=== PATIENT | male | born 1950 | race Caucasian/White ===

== ENCOUNTER 2019-08-08 13:17 | Emergency (ER) | payer OTHER ==
--- NOTE | 2019-08-08 13:56 | ERPHSYRPT ---
- History of Present Illness Time Seen by Provider: 08/08/19 13:56 Source: patient Exam Limitations: no limitations Patient Subjective Stated Complaint: Pt has been feeling sick for about a week and a half, has a cough that produces yellow sputum but feels that there is much more that isn't coming up, went to [facility] today and had a chest x-ray and labs done Triage Nursing Assessment: Pt sent to the ER from [facility], tachycardic, short of breath, productive cough, crackles in left upper, +1 edema to sathish lower extremeties, S1-S2 sounds heard, pulses bounding, denies pain Physician History: Is a 69-year-old white male who has seen Dr. Washington in the past but is not on any medication and has no known drug allergies. He presented to the urgent care with complaints of cough shortness of breath and orthopnea. Patient denies chest pain. He denies abdominal pain. In the urgent care center, patient was found to have an elevated heart rate in the 150s. Patient was sent to the radiology suite and a chest x-ray was obtained which revealed changes consistent with congestive heart failure. That is cardiomegaly and small bibasilar pleural effusions. Patient was then sent to the emergency room where he was found to have heart rate in the 150s but is hemodynamically stable. Timing/Duration: week(s) Cough Quality/Degree: mild, dry cough Possible Cause: no prior episodes Associated Symptoms: cough, shortness of breath, No fever, No chills, No chest pain/soreness, No dizziness Allergies/Adverse Reactions: No Known Drug Allergies Allergy (Verified 08/08/19 13:50) Home Medications: Glucosamine/D3/Boswellia Eleni [Osteo Bi-Flex Tablet] 1 each PO DAILY 08/08/19 [ History] Hx Influenza Vaccination/Date Given: Yes (2018) Hx Pneumococcal Vaccination/Date Given: No - Review of Systems Constitutional: Weakness Eyes: No Symptoms Ears, Nose, & Throat: No Symptoms Respiratory: Cough, Dyspnea Cardiac: No Symptoms, Orthopnea, No Chest Pain, No Palpitations, No Syncope Abdominal/Gastrointestinal: No Symptoms Genitourinary Symptoms: No Symptoms Musculoskeletal: No Symptoms Skin: No Symptoms Neurological: No Symptoms Psychological: No Symptoms Endocrine: No Symptoms Hematologic/Lymphatic: No Symptoms Immunological/Allergic: No Symptoms All Other Systems: Reviewed and Negative - Past Medical History Pertinent Past Medical History: Yes Neurological History: No Pertinent History ENT History: No Pertinent History Cardiac History: No Pertinent History Respiratory History: No Pertinent History Endocrine Medical History: No Pertinent History Musculoskeletal History: No Pertinent History GI Medical History: No Pertinent History History: No Pertinent History Psycho-Social History: No Pertinent History Male Reproductive Disorders: No Pertinent History Other Medical History: hypotension 15 years ago - Past Surgical History Past Surgical History: Yes Neuro Surgical History: No Pertinent History Cardiac: No Pertinent History Respiratory: No Pertinent History Gastrointestinal: No Pertinent History Genitourinary: No Pertinent History Musculoskeletal: No Pertinent History Male Surgical History: No Pertinent History - Social History Smoking Status: Current every day smoker Exposure to second hand smoke: Yes Drug Use: none Patient Lives Alone: No - Nursing Vital Signs Nursing Vital Signs: Initial Vital Signs Temperature 97.9 F 08/08/19 13:26 Pulse Rate 156 H 08/08/19 13:26 Respiratory Rate 18 08/08/19 13:26 Blood Pressure 130/95 08/08/19 13:26 O2 Sat by Pulse Oximetry 99 08/08/19 13:26 Pain Scale Pain Intensity 0 - Physical Exam General Appearance: moderate distress, alert, anxiety Eye Exam: PERRL/EOMI, eyes nml inspection Ears, Nose, Throat Exam: normal ENT inspection, moist mucous membranes Neck Exam: normal inspection, non-tender, supple, full range of motion Respiratory Exam: normal breath sounds, airway intact, No chest tenderness, No lungs clear, No respiratory distress Cardiovascular Exam: tachycardia, edema (Bilateral feet and ankles) Gastrointestinal/Abdomen Exam: soft, normal bowel sounds, No tenderness Rectal Exam: not done Back Exam: normal inspection, normal range of motion, No CVA tenderness, No vertebral tenderness Extremity Exam: pedal edema (Bilateral feet and ankles) Neurologic Exam: alert, oriented x 3, cooperative, 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 Bundle branch block. 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 Care 08/08/19 14:04 Active EKG-ER Only [facility] 08/08/19 14:02 Active EKG-ER Only [facility] 08/08/19 15:32 Active IV Insertion [facility] 08/08/19 14:02 Active Pulse Oximetry (ED) [facility] Care 08/08/19 14:02 Active CHEST WITH CONTRAST [CT] Stat Exams 08/08/19 15:54 Taken CBC W DIFF Stat Lab 08/08/19 14:18 Completed CMP Stat Lab 08/08/19 14:18 Completed D-DIMER QUANTITATIVE Stat Lab 08/08/19 14:18 Completed Lactic Acid Stat Lab 08/08/19 14:45 Completed NT PRO BNP Stat Lab 08/08/19 14:18 Completed PROTIME WITH INR Stat Lab 08/08/19 14:18 Completed TROPONIN Q3H Lab 08/08/19 14:18 Completed TROPONIN Q3H Lab 08/08/19 17:25 Completed TROPONIN Q3H Lab 08/08/19 20:15 Ordered TROPONIN Q3H Lab 08/08/19 23:15 Ordered TROPONIN Q3H Lab 08/09/19 02:15 Ordered Medication Summary Generic Name Dose Route Start Last Admin Trade Name Freq PRN Reason Stop Dose Admin Amiodarone HCl/Dextrose 360 mg in 200 mls @ 33 mls/hr 08/08/19 15:15 15:19 Nexterone 360 Mg/200 Ml Bag IV 09/07/19 15:14 33 mls/hr .Q6H4M JOSE MARTIN 33 mls/hr Administration Protocol Sodium Chloride 250 mls @ 250 mls/hr 08/08/19 18:00 08/08/19 18:05 Sodium Chloride 0.9% 250 Ml IV 08/08/19 18:59 250 mls/hr .Q1H JOSE MARTIN Administration Discontinued Medications Generic Name Dose Route Start Last Admin Trade Name Freq PRN Reason Stop Dose Admin Adenosine 6 mg 08/08/19 15:53 08/08/19 16:23 Adenocard Iv 6 Mg/2 Ml IV 08/08/19 15:54 6 mg STAT ONE Administration Adenosine Confirm 08/08/19 15:57 Adenocard Iv 6 Mg/2 Ml Administered 08/08/19 15:58 Dose 18 mg IV .STK-MED ONE Adenosine 12 mg 08/08/19 16:27 08/08/19 16:29 Adenocard Iv 6 Mg/2 Ml IV 08/08/19 16:28 12 mg STAT ONE Administration Amiodarone HCl 150 mg 08/08/19 14:16 08/08/19 14:38 Cordarone 150 Mg/3 Ml Injection IV 08/08/19 14:17 150 mg STAT ONE Administration Amiodarone HCl Confirm 08/08/19 14:27 Cordarone 150 Mg/3 Ml Injection Administered 08/08/19 14:28 Dose 150 mg .ROUTE .STK-MED ONE Diltiazem HCl 20 mg 08/08/19 14:02 08/08/19 14:39 Cardizem Iv 50 Mg/10 Ml IV 08/08/19 14:03 Not Given STAT ONE Diltiazem HCl 20 mg 08/08/19 16:56 08/08/19 17:23 Cardizem Iv 50 Mg/10 Ml IV 08/08/19 16:57 20 mg STAT ONE Administration Diltiazem HCl Confirm 08/08/19 16:58 Cardizem Iv 50 Mg/10 Ml Administered 08/08/19 16:59 Dose 50 mg IV .STK-MED ONE Furosemide 40 mg 08/08/19 14:02 08/08/19 14:38 Lasix 40 Mg/4 Ml IV 08/08/19 14:03 40 mg STAT ONE Administration Furosemide Confirm 08/08/19 14:28 Lasix 40 Mg/4 Ml Administered 08/08/19 14:29 Dose 40 mg .ROUTE .STK-MED ONE Dextrose Confirm 08/08/19 14:28 D5w 100ml Mini Bag 100 Ml Administered 08/08/19 14:29 Dose 100 mls @ ud IV .STK-MED ONE Diltiazem HCl Confirm 08/08/19 16:57 Cardizem Drip 100 Mg/100 Ml D5w Administered 08/08/19 16:58 Dose 100 mls @ ud IV .STK-MED ONE Diltiazem HCl Confirm 08/08/19 18:02 Cardizem Drip 100 Mg/100 Ml D5w Administered 08/08/19 18:03 Dose 100 mls @ ud IV .STK-MED ONE Lab/Rad Data: Laboratory Result Diagrams 08/08/19 14:18 08/08/19 14:18 Laboratory Results 08/08/19 08/08/19 08/08/19 Range/Units 17:25 14:45 14:18 WBC (4.0-10.5) K/mm3 RBC (4.1-5.6) M/mm3 Hgb (12.5-18.0) gm/dl Hct (42-50) % MCV (78-100) fl MCH (26-32) pg MCHC (32-36) g/dl RDW (11.5-14.0) % Plt Count (150-450) K/mm3 MPV (7.5-11.0) fl Gran % (36.0-66.0) % Eos # (Auto) (0-0.5) Absolute Lymphs (auto) (1.0-4.6) Absolute Monos (auto) (0.0-1.3) Lymphocytes % (24.0-44.0) % Monocytes % (0.0-12.0) % Eosinophils % (0.00-5.0) % Basophils % (0.0-0.4) % Absolute Granulocytes (1.4-6.9) Basophils # (0-0.4) PT (8.83-12.87) SECONDS INR (0.8-3.0) D-Dimer (215-500) ng/mL Sodium (137-145) mmol/L Potassium (3.5-5.1) mmol/L Chloride (98-107) mmol/L Carbon Dioxide (22-30) mmol/L Anion Gap (5-15) MEQ/L BUN (9-20) mg/dL Creatinine (0.66-1.25) mg/dL Estimated GFR ML/MIN Glucose (74-106) mg/dL Lactic Acid 0.8 (0.4-2.0) Calcium (8.4-10.2) mg/dL Total Bilirubin (0.2-1.3) mg/dL AST (17-59) U/L ALT (0-50) U/L Alkaline Phosphatase (38-126) U/L Troponin I < 0.012 < 0.012 (0.000-0.034) ng/mL NT-Pro-B Natriuret Pep (0-900) pg/mL Serum Total Protein (6.3-8.2) g/dL Albumin (3.5-5.0) g/dL 08/08/19 08/08/19 08/08/19 Range/Units 14:18 14:18 14:18 WBC 6.3 (4.0-10.5) K/mm3 RBC 4.43 (4.1-5.6) M/mm3 Hgb 13.6 (12.5-18.0) gm/dl Hct 40.6 L (42-50) % MCV 91.6 (78-100) fl MCH 30.7 (26-32) pg MCHC 33.5 (32-36) g/dl RDW 14.4 H (11.5-14.0) % Plt Count 301 (150-450) K/mm3 MPV 10.1 (7.5-11.0) fl Gran % 65.0 (36.0-66.0) % Eos # (Auto) 0.06 (0-0.5) Absolute Lymphs (auto) 1.51 (1.0-4.6) Absolute Monos (auto) 0.59 (0.0-1.3) Lymphocytes % 24.1 (24.0-44.0) % Monocytes % 9.4 (0.0-12.0) % Eosinophils % 1.0 (0.00-5.0) % Basophils % 0.5 (0.0-0.4) % Absolute Granulocytes 4.08 (1.4-6.9) Basophils # 0.03 (0-0.4) PT 13.7 H (8.83-12.87) SECONDS INR 1.21 (0.8-3.0) D-Dimer 731 H* (215-500) ng/mL Sodium 132 L (137-145) mmol/L Potassium 4.5 (3.5-5.1) mmol/L Chloride 99 (98-107) mmol/L Carbon Dioxide 23 (22-30) mmol/L Anion Gap 14.7 (5-15) MEQ/L BUN 16 (9-20) mg/dL Creatinine 0.84 (0.66-1.25) mg/dL Estimated GFR > 60.0 ML/MIN Glucose 113 H (74-106) mg/dL Lactic Acid (0.4-2.0) Calcium 9.3 (8.4-10.2) mg/dL Total Bilirubin 0.80 (0.2-1.3) mg/dL AST 48 (17-59) U/L ALT 52 H (0-50) U/L Alkaline Phosphatase 94 (38-126) U/L Troponin I (0.000-0.034) ng/mL NT-Pro-B Natriuret Pep 2850 H (0-900) pg/mL Serum Total Protein 6.9 (6.3-8.2) g/dL Albumin 4.0 (3.5-5.0) g/dL - Progress Progress: improved, re-examined Air Movement: good Progress Note: 08/08/19 17:09 Repeat EKG at 1543 after 150 mg intravenous amiodarone bolus and 1 mg/min amiodarone IV drip reveals sinus tachycardia with a QRS in the normal range. Heart rate now 150. We then opted for adenosine 6 mg intravenously followed by adenosine 12 mg IV bolus. Third EKG reveals a QRS that is 0.144. Heart rate is 151. I did place a call to Dr. Espinal who is the emergency room physician at [facility] emergency department I reviewed the patient's history, condition and the EKG findings as I read them. He did not see the EKGs himself. Based on what I was telling him, and not what he was seeing on the EKG he felt that treating the underlying cause of it was sinus tachycardia would be appropriate. I looked at the rhythm strip obtained after we gave the adenosine medication intravenously. The rhythm now looks more like an atrial flutter. We will stop the amiodarone drip and give the patient Cardizem. 08/08/19 18:12 We placed the patient on Cardizem followed by Cardizem drip. There appeared to be some mild response. The patient has maintained his blood pressure throughout his hospitalization here. I recontacted Dr. Espinal at [facility] emergency department. I reviewed the labs, x-ray results including the CAT scan of his chest with contrast. There is no evidence of any pneumonia or pulmonary emboli. There appears to be pleural effusions and picture consistent with congestive heart failure. He accepts the patient for transfer. 08/08/19 18:28 Patient is now refusing admission or transfer to any facility. Patient does not want any further treatment at this time. I informed him of his risk including worsening condition and even . I explained to him the benefits of being admitted into the facility. He adamantly refuses at this time. We will treat him with diuretics and he was informed that he can come back to our emergency room anytime. Blood Culture(s) Obtained: No Antibiotics given: No Discussed with : Other (Kylie) Counseled pt/family regarding: lab results, diagnosis, need for follow-up, rad results - Departure Departure Disposition: AMA Clinical Impression: Congestive heart failure, Tachycardia, Pleural effusion Condition: Fair Critical Care Time: Yes Critical Care Time(excluding separately billable procedures): Critical 75-104 mins Referrals: AURELIA GODINEZ MD [Primary Care Provider] - Instructions: Heart Failure Additional Instructions: Take the medication as prescribed. Return to the emergency room if symptoms worsen. Follow-up with your primary care physician for further management. Prescriptions: Furosemide 20 mg [Lasix 20 mg] 20 mg PO BID #20 tablet Potassium Chloride 10 Meq Tab* [Klor Con 10 MEQ] 10 meq PO DAILY #10 tab
[2019-08-08] MEDS ORDERED: Lasix 40 MG/4 ML IV ONE (14:02)
[2019-08-08] MEDS ORDERED: Cardizem IV 50 MG/10 ML IV ONE ×3 (14:02→16:58)
[2019-08-08] MEDS ORDERED: Cordarone 150 MG/3 ML Injection IV ONE (14:16)
[2019-08-08 14:21] LABS: Absolute Neutrophil Ct (ANC) 4.08 (1.4-6.9); BASOPHIL % 0.5 % (0.0-0.4); Basophil (Absolute #) 0.03 (0-0.4); Eosinophil (Absolute #) 0.06 (0-0.5); Hematocrit 40.6 % (42-50); Hemoglobin 13.6 gm/dl (12.5-18.0); Lymphocyte (Absolute #) 1.51 (1.0-4.6); Lymphocytes % 24.1 % (24.0-44.0); Mean Cell Volume 91.6 fl (78-100); Mean Corpuscular Hemoglobin 30.7 pg (26-32); Mean Corpuscular Hgb Concent. 33.5 g/dl (32-36); Mean Platelet Volume 10.1 fl (7.5-11.0); Monocyte (Absolute #) 0.59 (0.0-1.3); Monocytes % 9.4 % (0.0-12.0); Platelet Count 301 K/mm3 (150-450); Red Blood Count 4.43 M/mm3 (4.1-5.6); Red Cell Distribution Width 14.4 % (11.5-14.0); White Blood Count 6.3 K/mm3 (4.0-10.5)
[2019-08-08] MEDS ORDERED: Cordarone 150 MG/3 ML Injection ONE (14:27)
[2019-08-08] MEDS ORDERED: Lasix 40 MG/4 ML ONE (14:28)
[2019-08-08] MEDS ORDERED: D5w 100ML Mini Bag 100 ML 100 ML IV ONE (14:28)
[2019-08-08 14:29] LABS: INR 1.21 (0.8-3.0); PROTIME 13.7 SECONDS (8.83-12.87)
[2019-08-08 14:49] LABS: ALKALINE PHOSPHATASE 94 U/L (38-126); ANION GAP 14.7 MEQ/L (5-15); BLOOD UREA NITROGEN 16 mg/dL (9-20); CHLORIDE 99 mmol/L (98-107); Calcium 9.3 mg/dL (8.4-10.2); Carbon Dioxide 23 mmol/L (22-30); Creatinine 1 0.84 mg/dL (0.66-1.25); Glucose 113 mg/dL (74-106); NT PRO BNP 2850 pg/mL (0-900); Potassium 4.5 mmol/L (3.5-5.1); SGOT/AST 48 U/L (17-59); SGPT/ALT 52 U/L (0-50); SODIUM 132 mmol/L (137-145); Total Protein 6.9 g/dL (6.3-8.2)
[2019-08-08] MEDS ORDERED: NEXTERONE 360 MG/200 ML BAG 360 MG/200 ML PLAST..BAG IV ONE (15:14)
[2019-08-08] MEDS ORDERED: NEXTERONE 360 MG/200 ML BAG 360 MG/200 ML PLAST..BAG IV SCH (15:15)
[2019-08-08] MEDS ORDERED: Adenocard IV 6 MG/2 ML IV ONE ×3 (15:53→16:27)
[2019-08-08] MEDS ORDERED: CARDIZEM DRIP 100 MG/100 ML D5W 0 ML IV ONE ×2 (16:57→18:02)
[2019-08-08] MEDS ORDERED: Sodium Chloride 0.9% 250 ML 250 ML IV ONE (17:58)
[2019-08-08] MEDS ORDERED: Sodium Chloride 0.9% 250 ML 250 ML IV SCH (18:00)
[2019-08-08 18:58] VITALS: BP 124/94; PULSE 150; O2SAT 98
--- NOTE | 2019-08-08 21:18 | XRAY ---
Indication: Cough, short of breath, and elevated d-dimer. Multiple contiguous axial images obtained through the chest using 100 cc Isovue-370 contrast and PE protocol. Comparison: None There is good opacification of the pulmonary arteries to include the lobar and segmental branches. No filling defect or pulmonary embolus. Heart is enlarged. Aorta is normal in course and caliber. No pathologic mediastinal/hilar lymphadenopathy. Examination of the lung parenchyma demonstrates moderate bilateral pleural effusions, right greater than left with mild compressive atelectasis. Elsewhere there is mild pulmonary emphysema, biapical subpleural cystic changes, and medial right middle lobe subsegmental atelectasis. Bony thorax intact with mild degenerative changes throughout the spine. Limited upper abdomen demonstrates tiny splenic calcified granulomas Impression: 1. Negative pulmonary embolus. 2. Cardiomegaly with moderate bilateral pleural effusions favoring cardiac decompensation. 3. Incidental pulmonary emphysema and biapical subpleural cystic changes.
== END 2019-08-08 18:58 | disposition left against medical advice (07) ==
LOC: ED 13:17
DX: I50.9 Heart failure, unspecified (principal); R00.0 Tachycardia, unspecified; J90 Pleural effusion, not elsewhere classified
CPT/HCPCS: 36000; 36415; 71046; 71260; 80053; 83605; 83880; 84484; 85025; 85379; 85610; 93005; 93041; 94760; 96365; 96366; 96374; 96375; 96376; 99285; 99291; 99292; J0153; J0282; J1940

== ENCOUNTER 2022-05-24 14:54 | Observation (INO) | payer MEDICARE ==
--- NOTE | 2022-05-24 15:44 | ERPHSYRPT ---
- History of Present Illness Time Seen by Provider: 05/24/22 15:30 Source: patient Exam Limitations: no limitations Patient Subjective Stated Complaint: Dizziness Triage Nursing Assessment: Patient brought back to ED per w/c and transferred to bed with assist of 1. Patient A+O X 3. Patient's skin pink, warm and dry. Patient complains of dizziness and numbness to hands and fingers for 3 days. Patient denies pain or discomfort. Left side of face noted to have droopness. 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 Physician History: 71-year-old male presents to the emergency room today with bilateral paresthesias in his hands and fingers with associated dizziness and shortness of breath with standing. Patient reports has been going on for the last 3 days but continues to worsen. He denies any focal weakness, but he appears to have some slurred speech and left-sided facial drooping. Patient reports that this is not abnormal for him as he had a facial trauma in the past that affected the left side of his face he does not feel like his speech is slurred. He has no history of CVA, but does have AFib and is on Xarelto. He denies any difficulty ambulating outside of getting dizzy when standing from a seated position. He denies hematochezia or melena. He has never had a colonoscopy. Timing/Duration: day(s) (3) Severity: moderate Character of Deficits: altered sensation, impaired speech, Left Facial Deficits: decrease ability to stand, weak Baseline/Normal Cognition: alert oriented x 3 Current Cognition: alert oriented x 3 Baseline Gait: walks w/o assistance Associated Symptoms: weakness, paresthesia, slurred speech, No confusion, No fever, No chills, No loss of consciousness, No nausea, No vomiting, No trouble walking, No vision changes, No chest pain, No headache Allergies/Adverse Reactions: No Known Drug Allergies Allergy (Verified 05/24/22 15:08) Home Medications: Amiodarone HCl 200 mg PO BID 05/24/22 [History] Fluticasone Propion/Salmeterol [Wixela 250-50 Inhub] 1 puff .ROUTE BID 05/24/22 [History] Rivaroxaban [Xarelto] 1 tab PO DAILY 05/24/22 [History] Spironolactone 25 mg [Aldactone 25 MG] 1 tab PO DAILY 05/24/22 [History] Hx Influenza Vaccination/Date Given: Yes (2021) Hx Pneumococcal Vaccination/Date Given: No Immunizations Up to Date: Yes Travel Risk - International Travel Have you traveled outside of the country in past 3 weeks: No - Coronavirus Screening Are you exhibiting any of the following symptoms?: No Close contact with a COVID-19 positive Pt in past 14-21 Days: No - Vaccine Status Have you recieved a Covid-19 vaccination: Yes 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: [employer] - Review of Systems Constitutional: Fatigue, Weakness, No Fever, No Chills Eyes: No Symptoms Ears, Nose, & Throat: No Symptoms Respiratory: No Symptoms Cardiac: No Symptoms Abdominal/Gastrointestinal: No Symptoms Genitourinary Symptoms: No Symptoms Musculoskeletal: No Symptoms Skin: No Symptoms Neurological: Dizziness, Parasthesia, Other ( Neck pain, bilateral upper extremity paresthesias, no weakness), No Focal Weakness, No Gait Changes, No Headache Endocrine: No Symptoms Hematologic/Lymphatic: No Symptoms Immunological/Allergic: No Symptoms All Other Systems: Reviewed and Negative - Past Medical History Pertinent Past Medical History: Yes Neurological History: No Pertinent History ENT History: No Pertinent History Cardiac History: No Pertinent History Respiratory History: No Pertinent History Endocrine Medical History: No Pertinent History Musculoskeletal History: No Pertinent History GI Medical History: No Pertinent History History: No Pertinent History Psycho-Social History: No Pertinent History Male Reproductive Disorders: No Pertinent History Other Medical History: hypotension 15 years ago - Past Surgical History Past Surgical History: Yes Neuro Surgical History: No Pertinent History Cardiac: No Pertinent History Respiratory: No Pertinent History Gastrointestinal: No Pertinent History Genitourinary: No Pertinent History Musculoskeletal: No Pertinent History Male Surgical History: No Pertinent History - Social History Smoking Status: Current every day smoker How long have you smoked: cigar Exposure to second hand smoke: Yes Drug Use: none Patient Lives Alone: No - Nursing Vital Signs Nursing Vital Signs: Initial Vital Signs Temperature 96.9 F 05/24/22 15:12 Pulse Rate 74 05/24/22 15:12 Respiratory Rate 18 05/24/22 15:12 Blood Pressure 165/60 05/24/22 15:12 O2 Sat by Pulse Oximetry 100 05/24/22 15:12 Pain Scale Pain Intensity 0 - Aura Coma Scale Best Eye Response (Townsend): (4) open spontaneously Best Verbal Response (Aura): (5) oriented Best Motor Response ([place]): (6) obeys commands Aura Total: 15 - Physical Exam General Appearance: no apparent distress Eye Exam: bilateral eye: normal inspection, PERRL, EOMI Ears, Nose, Throat Exam: normal ENT inspection Neck Exam: normal inspection, supple, limited range of motion, midline tenderness Respiratory: normal breath sounds, lungs clear Cardiovascular: regular rate/rhythm, normal heart sounds Gastrointestinal: soft, No tenderness, No distention, No guarding, No rebound Back Exam: normal inspection, No vertebral tenderness Extremity Exam: normal inspection, normal range of motion, parasthesia ( bilateral upper extremities), No swelling, No tenderness Mental Status: alert, oriented x 3, 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 Exam: normal hearing, PERRL, abnormal speech, facial asymmetry, facial droop, tongue midline Coordination/Gait: normal finger to nose, normal cerebellar function Motor/Sensory: no motor deficit, no sensory deficit, no pronator drift, negative Babinski's sign Skin Exam: normal color, warm, dry, pale SpO2 Interpretation: normal SpO2: 100 O2 Delivery: Room Air - Course Nursing assessment & vital signs reviewed: Yes EKG Interpreted by Me: RATE (71), Sinus Rhythm, NORMAL AXIS, prolonged QT interval, Right Bundle Branch Block (similar to EKG on 07/2019), NORMAL ST-T Rhythm Strip: Rate - CT Exams Head CT Interpretation: Negative Ordered Tests: Medication Summary Generic Name Dose Route Start Last Admin Trade Name Freq PRN Reason Stop Dose Admin Amiodarone HCl 200 mg 05/25/22 13:00 05/26/22 09:55 Amiodarone Hcl 200 Mg Tab PO 06/24/22 12:59 200 mg BID JOSE MARTIN Administration Sodium Chloride 1,000 mls @ 100 mls/hr 05/24/22 20:01 05/26/22 07:42 Sodium Chloride 0.9% 1000 Ml IV 06/23/22 20:00 100 mls/hr .Q10H JOSE MARTIN Administration Fluticasone/Salmeterol 2 puff 05/25/22 07:00 05/26/22 07:58 Fluticasone/Salmeterol 115/21 - 120 Puff Common Canister IH 06/24/22 06:59 2 puff BIDRT JOSE MARTIN Administration Spironolactone 25 mg 05/25/22 13:00 05/26/22 09:55 Spironolactone 25 Mg Tablet PO 06/24/22 12:59 25 mg DAILY JOSE MARTIN Administration Discontinued Medications Generic Name Dose Route Start Last Admin Trade Name Lindsay PRN Reason Stop Dose Admin Amiodarone HCl 200 mg 05/25/22 22:00 05/24/22 22:09 Amiodarone Hcl 200 Mg Tab PO 05/25/22 22:01 200 mg ONCE ONE Administration Amiodarone HCl Confirm 05/24/22 21:29 Amiodarone Hcl 200 Mg Tab Administered 05/24/22 21:30 Dose 200 mg .ROUTE .STK-MED ONE Sodium Chloride 500 mls @ 50 mls/hr 05/24/22 21:45 Sodium Chloride 0.9% 500 Ml IV 06/23/22 21:44 .Q10H JOSE MARTIN Polyethylene Glycol/Electrolytes 4,000 ml 05/25/22 14:00 05/25/22 14:34 Sod Sulf/Sod/Nahco3/Kcl/Peg's 4000 Ml Bottle PO 05/25/22 14:01 Not Given ONCE@1400 ONE Lab/Rad Data: Laboratory Result Diagrams 05/24/22 15:29 05/24/22 15:29 Laboratory Results 05/24/22 05/24/22 05/24/22 Range/Units 18:08 16:47 16:25 WBC (4.0-10.5) x10^3/uL RBC (4.1-5.6) x10^6/uL Hgb (12.5-18.0) g/dL Hct (42-50) % MCV (78-100) fL MCH (26-32) pg MCHC (32-36) g/dL RDW (11.5-14.0) % Plt Count (150-450) x10^3/uL MPV (7.5-11.0) fL Gran % (36.0-66.0) % Immature Gran % (Auto) (0.00-0.4) % Nucleat RBC Rel Count (0.00-0.1) % Eos # (Auto) (0-0.5) x10^3/uL Immature Gran # (Auto) (0.00-0.03) x10^3u/L Absolute Lymphs (auto) (1.0-4.6) x10^3/uL Absolute Monos (auto) (0.0-1.3) x10^3/uL Absolute Nucleated RBC (0.00-0.01) x10^3u/L Lymphocytes % (24.0-44.0) % Monocytes % (0.0-12.0) % Eosinophils % (0.00-5.0) % Basophils % (0.0-0.4) % Absolute Granulocytes (1.4-6.9) x10^3/uL Basophils # (0-0.4) x10^3/uL Sodium (137-145) mmol/L Potassium (3.5-5.1) mmol/L Chloride (98-107) mmol/L Carbon Dioxide (22-30) mmol/L Anion Gap (5-15) MEQ/L BUN (9-20) mg/dL Creatinine (0.66-1.25) mg/dL Estimated GFR ML/MIN Glucose (74-106) mg/dL Calcium (8.4-10.2) mg/dL Influenza Type A Ag NEGATIVE (NEGATIVE) Influenza Type B Ag NEGATIVE (NEGATIVE) RSV (PCR) NEGATIVE (Negative) SARS-CoV-2 (PCR) NEGATIVE (NEGATIVE) ABO Group O Rh Factor POSITIVE Antibody Screen NEGATIVE (NEGATIVE) Crossmatch COMPATIBLE COMPATIBLE (COMPATIBLE) 05/24/22 05/24/22 Range/Units 15:29 15:29 WBC 6.9 (4.0-10.5) x10^3/uL RBC 1.93 L (4.1-5.6) x10^6/uL Hgb 5.7 L* (12.5-18.0) g/dL Hct 18.6 L (42-50) % MCV 96.4 (78-100) fL MCH 29.5 (26-32) pg MCHC 30.6 L (32-36) g/dL RDW 14.5 H (11.5-14.0) % Plt Count 308 (150-450) x10^3/uL MPV 9.5 (7.5-11.0) fL Gran % 75.7 H (36.0-66.0) % Immature Gran % (Auto) 0.9 H (0.00-0.4) % Nucleat RBC Rel Count 0.0 (0.00-0.1) % Eos # (Auto) 0.08 (0-0.5) x10^3/uL Immature Gran # (Auto) 0.06 H (0.00-0.03) x10^3u/L Absolute Lymphs (auto) 1.03 (1.0-4.6) x10^3/uL Absolute Monos (auto) 0.47 (0.0-1.3) x10^3/uL Absolute Nucleated RBC 0.00 (0.00-0.01) x10^3u/L Lymphocytes % 15.0 L (24.0-44.0) % Monocytes % 6.8 (0.0-12.0) % Eosinophils % 1.2 (0.00-5.0) % Basophils % 0.4 (0.0-0.4) % Absolute Granulocytes 5.20 (1.4-6.9) x10^3/uL Basophils # 0.03 (0-0.4) x10^3/uL Sodium 129 L (137-145) mmol/L Potassium 4.2 (3.5-5.1) mmol/L Chloride 102 (98-107) mmol/L Carbon Dioxide 21 L (22-30) mmol/L Anion Gap 10.5 (5-15) MEQ/L BUN 26 H (9-20) mg/dL Creatinine 1.21 (0.66-1.25) mg/dL Estimated GFR > 60.0 ML/MIN Glucose 122 H (74-106) mg/dL Calcium 8.2 L (8.4-10.2) mg/dL Influenza Type A Ag (NEGATIVE) Influenza Type B Ag (NEGATIVE) RSV (PCR) (Negative) SARS-CoV-2 (PCR) (NEGATIVE) ABO Group Rh Factor Antibody Screen (NEGATIVE) Crossmatch (COMPATIBLE) - Progress Progress: unchanged Progress Note: even though patient felt like that the appearance in his face that we were noticing was due to longstanding condition due to the nature of the rest of his symptoms decision was made to proceed with a noncontrast CT scan of the head in order to rule out hemorrhagic stroke this imaging was negative. On laboratory evaluation patient was found to have a hemoglobin of 5.7 so he was typed and screened and 2 units of packed red blood cells were given. He once again denied any source of bleeding, but is on Xarelto. FOBT was ordered. Discussed patient with Dr. Moody who agrees to accept for admission. 05/26/22 17:35 Discussed with .: Oksana Will see patient in: hospital (observation) Counseled pt/family regarding: lab results, diagnosis, rad results - Departure Departure Disposition: Observation Clinical Impression: Hyponatremia, Chronic anticoagulation Anemia Qualifiers: Anemia type: unspecified type Qualified Code(s): D64.9 - Anemia, unspecified Condition: Fair Critical Care Time: No
[2022-05-24 15:54] LABS: Basophil (Absolute #) 0.03 x10^3/uL (0-0.4); Eosinophil % 1.2 % (0.00-5.0); Eosinophil (Absolute #) 0.08 x10^3/uL (0-0.5); Hematocrit 18.6 % (42-50); Lymphocyte (Absolute #) 1.03 x10^3/uL (1.0-4.6); Mean Cell Volume 96.4 fL (78-100); Mean Corpuscular Hemoglobin 29.5 pg (26-32); Mean Corpuscular Hgb Concent. 30.6 g/dL (32-36); Mean Platelet Volume 9.5 fL (7.5-11.0); Monocyte (Absolute #) 0.47 x10^3/uL (0.0-1.3); Monocytes % 6.8 % (0.0-12.0); Neutrophil % 75.7 % (36.0-66.0); Platelet Count 308 x10^3/uL (150-450); Red Blood Count 1.93 x10^6/uL (4.1-5.6); Red Cell Distribution Width 14.5 % (11.5-14.0); White Blood Count 6.9 x10^3/uL (4.0-10.5)
[2022-05-24 16:11] LABS: Hemoglobin 5.7 g/dL (12.5-18.0)
[2022-05-24 16:21] LABS: ANION GAP 10.5 MEQ/L (5-15); BLOOD UREA NITROGEN 26 mg/dL (9-20); CHLORIDE 102 mmol/L (98-107); Calcium 8.2 mg/dL (8.4-10.2); Carbon Dioxide 21 mmol/L (22-30); Creatinine 1 1.21 mg/dL (0.66-1.25); EST GLOMERULAR FILTRATION RATE > 60.0 ML/MIN; Glucose 122 mg/dL (74-106); Potassium 4.2 mmol/L (3.5-5.1); SODIUM 129 mmol/L (137-145)
--- NOTE | 2022-05-24 16:32 | XRAY ---
Indication: Stroke. Bilateral upper extremity paresthesia. Multiple contiguous axial images obtained through the head without contrast. Comparison: None Age-appropriate global atrophy. No acute intracranial hemorrhage, abnormal extra-axial fluid collection, or mass effect. Fourth ventricle is midline without hydrocephalus. Bony calvarium intact. Visualized paranasal sinuses and mastoid air cells are clear. Impression: Negative CT head without contrast exam.
--- NOTE | 2022-05-24 16:36 | XRAY ---
Indication: Stroke. Bilateral upper extremity paresthesia. Multiple contiguous axial images obtained through the cervical spine. Sagittal and coronal reformatted images obtained. Comparison: None Axial images negative for acute fracture, suspicious bony lesions, or spinal canal stenosis. Minimal/mild C3-C6 degenerative endplate spurring and minimal multilevel bilateral degenerative facet arthropathy. Also mild atlantoaxial degenerative changes. Sagittal and coronal reformatted images demonstrate normal alignment with minimal C5-C6 disc space narrowing. No acute compression fracture, subluxation, or jump facet. Normal appearing craniocervical junction. Visualized noncontrasted soft tissues demonstrate moderate bilateral carotid calcifications. Lung apices demonstrates pulmonary emphysema. Impression: 1. Minimal/mild multilevel degenerative changes, moderate bilateral carotid calcifications, and pulmonary emphysema. 2. Remaining CT cervical spine is negative.
[2022-05-24 17:25] LABS: INFLUENZA A NEGATIVE (NEGATIVE); INFLUENZA B NEGATIVE (NEGATIVE); RESPIRATORY SYNCTIAL VIRUS NEGATIVE (Negative); SARS-CoV-2 Xpert Express NEGATIVE (NEGATIVE)
[2022-05-24 17:27] LABS: Folate (Folic Acid) 7.11 ng/mL (2.76 - >20)
[2022-05-24 18:07] LABS: ABO TYPING O; Antibody Screen NEGATIVE (NEGATIVE); RH TYPING POSITIVE
[2022-05-24 18:10] LABS: CROSS MATCH (PRBC) COMPATIBLE (COMPATIBLE)
[2022-05-24] MEDS ORDERED: Sodium Chloride 0.9% 1000 ML 1,000 ML IV SCH (20:01)
[2022-05-24] MEDS ORDERED: Cordarone 200 MG ONE (21:29)
[2022-05-24] MEDS ORDERED: Sodium Chloride 0.9% 500 ML 500 ML IV SCH (21:45)
[2022-05-25 04:02] LABS: Absolute Neutrophil Ct (ANC) 3.55 x10^3/uL (1.4-6.9); Basophil (Absolute #) 0.05 x10^3/uL (0-0.4); Eosinophil % 2.6 % (0.00-5.0); Eosinophil (Absolute #) 0.17 x10^3/uL (0-0.5); Hematocrit 22.2 % (42-50); Lymphocyte (Absolute #) 1.96 x10^3/uL (1.0-4.6); Lymphocytes % 30.5 % (24.0-44.0); Mean Cell Volume 93.7 fL (78-100); Mean Platelet Volume 10.1 fL (7.5-11.0); Monocyte (Absolute #) 0.64 x10^3/uL (0.0-1.3); Neutrophil % 55.3 % (36.0-66.0); Platelet Count 270 x10^3/uL (150-450); Red Blood Count 2.37 x10^6/uL (4.1-5.6); Red Cell Distribution Width 13.8 % (11.5-14.0); White Blood Count 6.4 x10^3/uL (4.0-10.5)
[2022-05-25 04:07] LABS: Hemoglobin 7.1 g/dL (12.5-18.0)
[2022-05-25 04:10] LABS: ANION GAP 9.3 MEQ/L (5-15); BLOOD UREA NITROGEN 23 mg/dL (9-20); CHLORIDE 104 mmol/L (98-107); Carbon Dioxide 21 mmol/L (22-30); Creatinine 1 1.19 mg/dL (0.66-1.25); EST GLOMERULAR FILTRATION RATE > 60.0 ML/MIN; Glucose 105 mg/dL (74-106); Potassium 3.8 mmol/L (3.5-5.1); SODIUM 131 mmol/L (137-145)
[2022-05-25 04:33] LABS: INR 1.07 (0.8-3.0); PROTIME 11.3 SECONDS (9.4-12.5)
[2022-05-25] MEDS ORDERED: FLUTICASONE-SALMETEROL 250-50 IH SCH (07:00)
[2022-05-25] MEDS: Advair Hfa 115/21 Common canister IH SCH ×2 (07:31→18:43)
--- NOTE | 2022-05-25 10:54 | PCM.HP ---
History of Present Illness - Chief Complaint Chief Complaint: anemia History of Present Illness: is a 71 year old male who presented to the ER complaining of weakness and numbness in his fingers/hands on both hands. he was found to be anemic on arrival, has received transfusion and is feeling better. he denies melena or hematochezia, he is on xarelto for a fib, sees Dr Michel but hasn't seen him for a long time. he has never had a colonoscopy. - Review of Systems Constitutional: Weakness (improved), No Fever, No Chills Respiratory: No Cough, No Short Of Breath Cardiac: No Chest Pain, No Edema, No Syncope Abdominal/Gastrointestinal: No Abdominal Pain, No Nausea, No Vomiting, No Diarrhea Skin: No Rash Neurological: Parasthesia (resolved s/p transfusion) Medications & Allergies Home Medications: Home Medication List Amiodarone HCl 200 mg PO BID 05/24/22 [History Confirmed 05/24/22] Fluticasone Propion/Salmeterol [Wixela 250-50 Inhub] 1 puff .ROUTE BID 05/24/22 [History Confirmed 05/24/22] Rivaroxaban [Xarelto] 1 tab PO DAILY 05/24/22 [History Confirmed 05/24/22] Spironolactone 25 mg [Aldactone 25 MG] 1 tab PO DAILY 05/24/22 [History Confirmed 05/24/22] Allergies/Adverse Reactions: Allergies Allergy/AdvReac Type Severity Reaction Status Date / Time No Known Drug Allergies Allergy Verified 05/24/22 15:08 - Past Medical History Past Medical History: Yes Neurological History: No Pertinent History ENT History: No Pertinent History Cardiac History: No Pertinent History Respiratory History: No Pertinent History Endocrine Medical History: No Pertinent History Musculoskelatal History: No Pertinent History GI Medical History: No Pertinent History History: No Pertinent History Pyscho-Social History: No Pertinent History Male Reproductive Disorders: No Pertinent History Comment: hypotension 15 years ago - Past Surgical History Past Surgical History: Yes Neuro Surgical History: No Pertinent History Cardiac History: No Pertinent History Respiratory Surgery: No Pertinent History GI Surgical History: No Pertinent History Genitourinary Surgical Hx: No Pertinent History Musculskeletal Surgical Hx: No Pertinent History Male Surgical History: No Pertinent History - Social History Smoking Status: Current every day smoker How long have you smoked: cigar Exposure to second hand smoke: Yes Alcohol: Daily Drug Use: none - Physical Exam Vital Signs: Vital Signs - 24 hr Temp Pulse Resp BP Pulse Ox 05/25/22 07:35 100 H 16 100 05/25/22 07:31 97.5 F 73 18 108/51 98 05/25/22 04:00 97.9 F 81 23 124/55 99 05/25/22 00:00 97.7 F 70 16 150/65 99 05/24/22 22:03 73 18 99 05/24/22 20:22 97.3 F 74 18 137/63 100 05/24/22 18:55 100 05/24/22 17:00 74 18 150/63 99 05/24/22 16:00 72 15 160/65 100 05/24/22 15:53 96 05/24/22 15:12 96.9 F 74 18 165/60 100 General Appearance: no apparent distress Neurologic Exam: alert, oriented x 3 Respiratory Exam: normal breath sounds, lungs clear, No respiratory distress Cardiovascular Exam: regular rate/rhythm, normal heart sounds, normal peripheral pulses Gastrointestinal/Abdomen Exam: soft, normal bowel sounds, No tenderness, No mass Extremity Exam: normal inspection, normal range of motion, pelvis stable Results - Labs Lab/Micro Results: Lab Results-Last 24 Hours 05/24/22 05/24/22 05/24/22 Range/Units 15:29 15:29 16:25 WBC 6.9 (4.0-10.5) x10^3/uL RBC 1.93 L (4.1-5.6) x10^6/uL Hgb 5.7 L* (12.5-18.0) g/dL Hct 18.6 L (42-50) % MCV 96.4 (78-100) fL MCH 29.5 (26-32) pg MCHC 30.6 L (32-36) g/dL RDW 14.5 H (11.5-14.0) % Plt Count 308 (150-450) x10^3/uL MPV 9.5 (7.5-11.0) fL Gran % 75.7 H (36.0-66.0) % Immature Gran % (Auto) 0.9 H (0.00-0.4) % Nucleat RBC Rel Count 0.0 (0.00-0.1) % Eos # (Auto) 0.08 (0-0.5) x10^3/uL Immature Gran # (Auto) 0.06 H (0.00-0.03) x10^3u/L Absolute Lymphs (auto) 1.03 (1.0-4.6) x10^3/uL Absolute Monos (auto) 0.47 (0.0-1.3) x10^3/uL Absolute Nucleated RBC 0.00 (0.00-0.01) x10^3u/L Lymphocytes % 15.0 L (24.0-44.0) % Monocytes % 6.8 (0.0-12.0) % Eosinophils % 1.2 (0.00-5.0) % Basophils % 0.4 (0.0-0.4) % Absolute Granulocytes 5.20 (1.4-6.9) x10^3/uL Basophils # 0.03 (0-0.4) x10^3/uL PT (9.4-12.5) SECONDS INR (0.8-3.0) Sodium 129 L (137-145) mmol/L Potassium 4.2 (3.5-5.1) mmol/L Chloride 102 (98-107) mmol/L Carbon Dioxide 21 L (22-30) mmol/L Anion Gap 10.5 (5-15) MEQ/L BUN 26 H (9-20) mg/dL Creatinine 1.21 (0.66-1.25) mg/dL Estimated GFR > 60.0 ML/MIN Glucose 122 H (74-106) mg/dL Calcium 8.2 L (8.4-10.2) mg/dL Vitamin B12 (239-931) pg/mL Folic Acid (2.76 - >20) ng/mL Influenza Type A Ag (NEGATIVE) Influenza Type B Ag (NEGATIVE) RSV (PCR) (Negative) SARS-CoV-2 (PCR) (NEGATIVE) ABO Group O Rh Factor POSITIVE Antibody Screen NEGATIVE (NEGATIVE) Crossmatch COMPATIBLE (COMPATIBLE) 05/24/22 05/24/22 05/24/22 Range/Units 16:47 18:08 Unknown WBC (4.0-10.5) x10^3/uL RBC (4.1-5.6) x10^6/uL Hgb (12.5-18.0) g/dL Hct (42-50) % MCV (78-100) fL MCH (26-32) pg MCHC (32-36) g/dL RDW (11.5-14.0) % Plt Count (150-450) x10^3/uL MPV (7.5-11.0) fL Gran % (36.0-66.0) % Immature Gran % (Auto) (0.00-0.4) % Nucleat RBC Rel Count (0.00-0.1) % Eos # (Auto) (0-0.5) x10^3/uL Immature Gran # (Auto) (0.00-0.03) x10^3u/L Absolute Lymphs (auto) (1.0-4.6) x10^3/uL Absolute Monos (auto) (0.0-1.3) x10^3/uL Absolute Nucleated RBC (0.00-0.01) x10^3u/L Lymphocytes % (24.0-44.0) % Monocytes % (0.0-12.0) % Eosinophils % (0.00-5.0) % Basophils % (0.0-0.4) % Absolute Granulocytes (1.4-6.9) x10^3/uL Basophils # (0-0.4) x10^3/uL PT (9.4-12.5) SECONDS INR (0.8-3.0) Sodium (137-145) mmol/L Potassium (3.5-5.1) mmol/L Chloride (98-107) mmol/L Carbon Dioxide (22-30) mmol/L Anion Gap (5-15) MEQ/L BUN (9-20) mg/dL Creatinine (0.66-1.25) mg/dL Estimated GFR ML/MIN Glucose (74-106) mg/dL Calcium (8.4-10.2) mg/dL Vitamin B12 238 L (239-931) pg/mL Folic Acid 7.11 (2.76 - >20) ng/mL Influenza Type A Ag NEGATIVE (NEGATIVE) Influenza Type B Ag NEGATIVE (NEGATIVE) RSV (PCR) NEGATIVE (Negative) SARS-CoV-2 (PCR) NEGATIVE (NEGATIVE) ABO Group Rh Factor Antibody Screen (NEGATIVE) Crossmatch COMPATIBLE (COMPATIBLE) 05/25/22 05/25/22 05/25/22 Range/Units 03:48 03:48 03:48 WBC 6.4 (4.0-10.5) x10^3/uL RBC 2.37 L (4.1-5.6) x10^6/uL Hgb 7.1 L D (12.5-18.0) g/dL Hct 22.2 L (42-50) % MCV 93.7 (78-100) fL MCH 30.0 (26-32) pg MCHC 32.0 (32-36) g/dL RDW 13.8 (11.5-14.0) % Plt Count 270 (150-450) x10^3/uL MPV 10.1 (7.5-11.0) fL Gran % 55.3 (36.0-66.0) % Immature Gran % (Auto) 0.8 H (0.00-0.4) % Nucleat RBC Rel Count 0.0 (0.00-0.1) % Eos # (Auto) 0.17 (0-0.5) x10^3/uL Immature Gran # (Auto) 0.05 H (0.00-0.03) x10^3u/L Absolute Lymphs (auto) 1.96 (1.0-4.6) x10^3/uL Absolute Monos (auto) 0.64 (0.0-1.3) x10^3/uL Absolute Nucleated RBC 0.00 (0.00-0.01) x10^3u/L Lymphocytes % 30.5 (24.0-44.0) % Monocytes % 10.0 (0.0-12.0) % Eosinophils % 2.6 (0.00-5.0) % Basophils % 0.8 (0.0-0.4) % Absolute Granulocytes 3.55 (1.4-6.9) x10^3/uL Basophils # 0.05 (0-0.4) x10^3/uL PT 11.3 (9.4-12.5) SECONDS INR 1.07 (0.8-3.0) Sodium 131 L (137-145) mmol/L Potassium 3.8 (3.5-5.1) mmol/L Chloride 104 (98-107) mmol/L Carbon Dioxide 21 L (22-30) mmol/L Anion Gap 9.3 (5-15) MEQ/L BUN 23 H (9-20) mg/dL Creatinine 1.19 (0.66-1.25) mg/dL Estimated GFR > 60.0 ML/MIN Glucose 105 (74-106) mg/dL Calcium 8.0 L (8.4-10.2) mg/dL Vitamin B12 (239-931) pg/mL Folic Acid (2.76 - >20) ng/mL Influenza Type A Ag (NEGATIVE) Influenza Type B Ag (NEGATIVE) RSV (PCR) (Negative) SARS-CoV-2 (PCR) (NEGATIVE) ABO Group Rh Factor Antibody Screen (NEGATIVE) Crossmatch (COMPATIBLE) - Radiology Impressions Radiology Exams & Impressions: Radiology Procedures Category Date Time Status CERVICAL SPINE WO CONTRAST [CT] Stat Exams 05/24/22 15:31 Completed HEAD WITHOUT CONTRAST [CT] Stat Exams 05/24/22 15:21 Completed - Other Procedures and Tests Respiratory Therapy 05/24/22 20:35 Smoking Cessation Education ONCE 05/24/22 22:03 Respiratory Therapy Assessment DAILY Assessment/Plan (1) Anemia Current Visit: Yes Status: Acute Qualifiers: Anemia type: unspecified type Qualified Code(s): D64.9 - Anemia, unspecified Assessment & Plan: hemoglobin up to 7.1 after transfusion, will monitor h/h. consult surgery as suspect GI source of blood loss. iron profile and b12/folate pending. Code(s): D64.9 - ANEMIA, UNSPECIFIED (2) Atrial fibrillation Current Visit: Yes Status: Acute Code(s): I48.91 - UNSPECIFIED ATRIAL FIBRILLATION (3) Chronic anticoagulation Current Visit: Yes Status: Acute Code(s): Z79.01 - CARE HOME (CURRENT) USE OF ANTICOAGULANTS
[2022-05-25] MEDS: Cordarone 200 MG PO SCH ×2 (12:04→21:34)
[2022-05-25] MEDS: Aldactone 25 MG PO SCH (12:04)
[2022-05-25 12:09] LABS: Folate (Folic Acid) 7.23 ng/mL (2.76 - >20)
[2022-05-25] MEDS ORDERED: Golytely Solution 4000 ML PO ONE (14:00)
[2022-05-25] MEDS ORDERED: Cordarone 200 MG PO ONE (22:00)
[2022-05-26 05:16] LABS: Absolute Neutrophil Ct (ANC) 3.69 x10^3/uL (1.4-6.9); Basophil (Absolute #) 0.05 x10^3/uL (0-0.4); Eosinophil % 3.9 % (0.00-5.0); Eosinophil (Absolute #) 0.26 x10^3/uL (0-0.5); Hematocrit 19.8 % (42-50); Lymphocyte (Absolute #) 1.89 x10^3/uL (1.0-4.6); Lymphocytes % 28.5 % (24.0-44.0); Mean Cell Volume 91.7 fL (78-100); Mean Corpuscular Hemoglobin 29.2 pg (26-32); Mean Corpuscular Hgb Concent. 31.8 g/dL (32-36); Mean Platelet Volume 9.9 fL (7.5-11.0); Monocyte (Absolute #) 0.69 x10^3/uL (0.0-1.3); Monocytes % 10.4 % (0.0-12.0); Neutrophil % 55.6 % (36.0-66.0); Platelet Count 273 x10^3/uL (150-450); Red Blood Count 2.16 x10^6/uL (4.1-5.6); Red Cell Distribution Width 14.1 % (11.5-14.0); White Blood Count 6.6 x10^3/uL (4.0-10.5)
[2022-05-26 05:29] LABS: Hemoglobin 6.3 g/dL (12.5-18.0)
[2022-05-26 05:52] LABS: ALBUMIN 3.3 g/dL (3.5-5.0); ANION GAP 8.7 MEQ/L (5-15); BILIRUBIN,TOTAL 0.5 mg/dL (0.2-1.3); Creatinine 1 1.28 mg/dL (0.66-1.25); EST GLOMERULAR FILTRATION RATE 59.2 ML/MIN; Potassium 3.8 mmol/L (3.5-5.1); Total Protein 5.8 g/dL (6.3-8.2)
[2022-05-26 07:22] LABS: CROSS MATCH (PRBC) COMPATIBLE (COMPATIBLE)
[2022-05-26] MEDS: Advair Hfa 115/21 Common canister IH SCH ×2 (07:58→18:31)
[2022-05-26] MEDS: Aldactone 25 MG PO SCH (09:55)
[2022-05-26] MEDS: Cordarone 200 MG PO SCH ×2 (09:55→21:16)
--- NOTE | 2022-05-26 12:23 | PCM.NOTE ---
Date and Time: 05/26/22 1220 Subjective Assessment: Pt has no distinct complaints; hgb was < 7 this morning so he is receiving his first unit of PRBC today. He denies jaswinder exhaustion. He does say he's not sleeping well in the hospital ("I'm not sleeping."). - Review of Systems Constitutional: No Fever Abdominal/Gastrointestinal: Constipation, No Vomiting, No Diarrhea, No Hematochezia, No Melena Objective Exam General Appearance: no apparent distress, alert Neurologic Exam: oriented x 3, cooperative Skin Exam: normal color, warm, dry, No rash Eye Exam: eyes nml inspection Ears, Nose, Throat Exam: moist mucous membranes Neck Exam: normal inspection Respiratory Exam: normal breath sounds, lungs clear, No crackles/rales, No rhonchi, No wheezing Cardiovascular Exam: regular rate/rhythm, normal heart sounds, No murmur Gastrointestinal/Abdomen Exam: soft, normal bowel sounds, No tenderness, No distention, No mass, No guarding, No rebound Extremity Exam: normal inspection, No pedal edema, No swelling Back Exam: normal inspection OBJECTIVE DATA Vital Signs: Vital Signs - 24 hr Temp Pulse Resp BP Pulse Ox 05/26/22 12:00 98.1 F 61 15 119/53 98 05/26/22 11:32 97.6 F 60 18 118/54 05/26/22 09:15 98.0 F 05/26/22 09:00 98.0 F 63 05/26/22 08:45 98.0 F 63 119/58 05/26/22 08:15 64 122/55 05/26/22 07:59 65 16 97 05/26/22 07:55 97.7 F 73 17 110/54 99 05/26/22 07:50 98.0 F 80 28 H 121/53 98 05/26/22 04:00 97.5 F 63 16 126/59 100 05/26/22 00:00 71 12 130/60 100 05/25/22 20:00 97.8 F 77 17 131/60 100 05/25/22 18:43 64 18 98 05/25/22 16:00 98.4 F 88 18 131/62 95 Pain Assessment - Last Documented Pain Intensity 0 Intake and Output: Intake & Output 05/24/22 05/25/22 05/26/22 05/27/22 11:59 11:59 11:59 11:59 Intake Total 9673 2240 Output Total 200 275 Balance 1760 1965 Weight 92.7 kg Lab Results: Lab Results-Last 24 Hours 05/26/22 05/26/22 05/26/22 Range/Units 05:06 05:06 Unknown WBC 6.6 (4.0-10.5) x10^3/uL RBC 2.16 L (4.1-5.6) x10^6/uL Hgb 6.3 L* (12.5-18.0) g/dL Hct 19.8 L (42-50) % MCV 91.7 (78-100) fL MCH 29.2 (26-32) pg MCHC 31.8 L (32-36) g/dL RDW 14.1 H (11.5-14.0) % Plt Count 273 (150-450) x10^3/uL MPV 9.9 (7.5-11.0) fL Gran % 55.6 (36.0-66.0) % Immature Gran % (Auto) 0.8 H (0.00-0.4) % Nucleat RBC Rel Count 0.0 (0.00-0.1) % Eos # (Auto) 0.26 (0-0.5) x10^3/uL Immature Gran # (Auto) 0.05 H (0.00-0.03) x10^3u/L Absolute Lymphs (auto) 1.89 (1.0-4.6) x10^3/uL Absolute Monos (auto) 0.69 (0.0-1.3) x10^3/uL Absolute Nucleated RBC 0.00 (0.00-0.01) x10^3u/L Lymphocytes % 28.5 (24.0-44.0) % Monocytes % 10.4 (0.0-12.0) % Eosinophils % 3.9 (0.00-5.0) % Basophils % 0.8 (0.0-0.4) % Absolute Granulocytes 3.69 (1.4-6.9) x10^3/uL Basophils # 0.05 (0-0.4) x10^3/uL Sodium 130 L (137-145) mmol/L Potassium 3.8 (3.5-5.1) mmol/L Chloride 102 (98-107) mmol/L Carbon Dioxide 24 (22-30) mmol/L Anion Gap 8.7 (5-15) MEQ/L BUN 24 H (9-20) mg/dL Creatinine 1.28 H (0.66-1.25) mg/dL Estimated GFR 59.2 ML/MIN Glucose 109 H (74-106) mg/dL Calcium 8.0 L (8.4-10.2) mg/dL Total Bilirubin 0.50 (0.2-1.3) mg/dL AST 19 (17-59) U/L ALT 15 (0-50) U/L Alkaline Phosphatase 47 (38-126) U/L Serum Total Protein 5.8 L (6.3-8.2) g/dL Albumin 3.3 L (3.5-5.0) g/dL Crossmatch COMPATIBLE (COMPATIBLE) 05/26/22 Range/Units Unknown WBC (4.0-10.5) x10^3/uL RBC (4.1-5.6) x10^6/uL Hgb (12.5-18.0) g/dL Hct (42-50) % MCV (78-100) fL MCH (26-32) pg MCHC (32-36) g/dL RDW (11.5-14.0) % Plt Count (150-450) x10^3/uL MPV (7.5-11.0) fL Gran % (36.0-66.0) % Immature Gran % (Auto) (0.00-0.4) % Nucleat RBC Rel Count (0.00-0.1) % Eos # (Auto) (0-0.5) x10^3/uL Immature Gran # (Auto) (0.00-0.03) x10^3u/L Absolute Lymphs (auto) (1.0-4.6) x10^3/uL Absolute Monos (auto) (0.0-1.3) x10^3/uL Absolute Nucleated RBC (0.00-0.01) x10^3u/L Lymphocytes % (24.0-44.0) % Monocytes % (0.0-12.0) % Eosinophils % (0.00-5.0) % Basophils % (0.0-0.4) % Absolute Granulocytes (1.4-6.9) x10^3/uL Basophils # (0-0.4) x10^3/uL Sodium (137-145) mmol/L Potassium (3.5-5.1) mmol/L Chloride (98-107) mmol/L Carbon Dioxide (22-30) mmol/L Anion Gap (5-15) MEQ/L BUN (9-20) mg/dL Creatinine (0.66-1.25) mg/dL Estimated GFR ML/MIN Glucose (74-106) mg/dL Calcium (8.4-10.2) mg/dL Total Bilirubin (0.2-1.3) mg/dL AST (17-59) U/L ALT (0-50) U/L Alkaline Phosphatase (38-126) U/L Serum Total Protein (6.3-8.2) g/dL Albumin (3.5-5.0) g/dL Crossmatch COMPATIBLE (COMPATIBLE) Radiology Exams: Radiology Procedures Category Date Time Status CERVICAL SPINE WO CONTRAST [CT] Stat Exams 05/24/22 15:31 Completed HEAD WITHOUT CONTRAST [CT] Stat Exams 05/24/22 15:21 Completed Multi-Disciplinary Progress Notes: Multi-Disciplinary Progress Notes 05/26/22 10:47 Case Management Note by Leonora Ventura PATIENT CONTINUES TO DENY ANY NEW NEEDS AT TIME OF DC. HE PLANS TO RETURN HOME TO HIS PLF AT TIME OF DC Initialized on 05/26/22 10:47 - END OF NOTE Assessment/Plan (1) Anemia Current Visit: Yes Status: Acute Qualifiers: Anemia type: unspecified type Qualified Code(s): D64.9 - Anemia, unspecified Assessment & Plan: Concern for GI loss - surgery has been consulted. Denies melena/hematochezia. Code(s): D64.9 - ANEMIA, UNSPECIFIED (2) Atrial fibrillation Current Visit: Yes Status: Acute Qualifiers: Atrial fibrillation type: unspecified Qualified Code(s): I48.91 - Unspecified atrial fibrillation Assessment & Plan: Pt does not want to take a blood thinner in the future. Code(s): I48.91 - UNSPECIFIED ATRIAL FIBRILLATION (3) Tachycardia Current Visit: No Status: Resolved Code(s): R00.0 - TACHYCARDIA, UNSPECIFIED
[2022-05-26 16:11] LABS: Hematocrit 26.4 % (42-50); Hemoglobin 8.5 g/dL (12.5-18.0)
[2022-05-26] MEDS ORDERED: Lactated Ringers 1,000 ML IV ONE (18:27)
[2022-05-26] MEDS ORDERED: Versed 2 MG/2 ML Injection ONE (19:00)
[2022-05-26] MEDS ORDERED: DIPRIVAN 200 MG/20 ML IV ONE (19:00)
[2022-05-27 06:03] LABS: Hematocrit 25.4 % (42-50); Mean Cell Volume 90.1 fL (78-100); Mean Corpuscular Hemoglobin 28.4 pg (26-32); Mean Corpuscular Hgb Concent. 31.5 g/dL (32-36); Mean Platelet Volume 9.9 fL (7.5-11.0); Platelet Count 268 x10^3/uL (150-450); Red Blood Count 2.82 x10^6/uL (4.1-5.6); Red Cell Distribution Width 15.3 % (11.5-14.0); White Blood Count 6.1 x10^3/uL (4.0-10.5)
[2022-05-27] MEDS ORDERED: FEVERALL 650 MG RC PRN (07:22)
[2022-05-27] MEDS ORDERED: TYLENOL 325 MG PO PRN (07:22)
[2022-05-27] MEDS: Advair Hfa 115/21 Common canister IH SCH (08:10)
[2022-05-27] MEDS: Cordarone 200 MG PO SCH (09:37)
[2022-05-27] MEDS: Aldactone 25 MG PO SCH (09:37)
[2022-05-27 11:38] VITALS: BP 127/78; PULSE 71; O2SAT 98
[2022-05-27] MEDS ORDERED: Protonix 40MG Tablet PO SCH (13:49)
--- NOTE | 2022-05-27 13:52 | PCM.DS ---
Discharge Summary Date of Admission: 05/24/22 19:39 Admitting Physician: NIKKO BARRIOS Consults: Consults on Case 05/25/22 10:48 Consult Surgery ROUTINE Primary Care Provider: AURELIA GODINEZ Allergies Allergies No Known Drug Allergies Allergy (Verified 05/24/22 15:08) Hospital Summary - Hospital Course Hospital Course: Pt is a 71 yo male with no local MD (has seen Nandini Rizzo remotely) with afib on xarelto who was admitted through ER with severe anemia. He had been having paresthesias and lightheadedness upon standing at home, and came to ER. In the workup he was discovered to have hgb of 5.7 and was given [address] His [address] head was nonacute and CT C-spine showed pulmonary emphysema, otherwise ne gative. He was admitted for further observation and surgery referral. They recommended colonoscopy, which he refused, and EGD, which he had done yesterday. No positive findings noted. He did have some bleeding in the past and was taken off the Eliquis, then was persuaded to resume it again. He was transfused 2 units again yesterday for Hgb under 7. He increased to 8.5, and today his hgb is 8.0. He denies any melena or hemochezia; FiOB ordered today. He is just feeling "sleepy" today but otherwise well. Has been without abd pain his entire stay. He will be discharged to home; will f/u with Dr. Godinez and discuss whether he needs to f/u with hematology. Will get CBC early next week, and go home on PPI (starting that here today). - Vitals & Intake/Output Vital Signs: Vital Signs Temperature 98.3 F 05/27/22 11:37 Pulse Rate 71 05/27/22 11:37 Respiratory Rate 18 05/27/22 11:37 Blood Pressure 127/78 05/27/22 11:37 O2 Sat by Pulse Oximetry 98 05/27/22 11:37 Intake & Output: Intake & Output 05/25/22 05/26/22 05/27/22 05/28/22 11:59 11:59 11:59 11:59 Intake Total 1960 2240 3868 240 Output Total 963 432 9325 Balance 1760 1965 2843 240 Weight 92.7 kg 92.7 kg - Lab Result Diagrams: 05/27/22 05:52 05/26/22 05:06 Lab Results-Last 24 Hrs: Lab Results-Last 24 Hours 05/26/22 05/27/22 Range/Units 16:05 05:52 WBC 6.1 (4.0-10.5) x10^3/uL RBC 2.82 L (4.1-5.6) x10^6/uL Hgb 8.5 L D 8.0 L (12.5-18.0) g/dL Hct 26.4 L 25.4 L (42-50) % MCV 90.1 (78-100) fL MCH 28.4 (26-32) pg MCHC 31.5 L (32-36) g/dL RDW 15.3 H (11.5-14.0) % Plt Count 268 (150-450) x10^3/uL MPV 9.9 (7.5-11.0) fL - Procedures and Test Procedures and Tests throughout Hospitalization: Therapy Orders & Screens 05/24/22 20:35 Smoking Cessation Education ONCE Comment: Diagnosis: anemia Smoking Status: Current every day smoker How long have you smoked: cigar Do you dip or chew tobacco: No 05/24/22 22:03 Respiratory Therapy Assessment DAILY Comment: Diagnosis: anemia Discharge Exam General Appearance: no apparent distress, alert Neurologic Exam: oriented x 3, cooperative, normal mood/affect Eye Exam: eyes nml inspection Ears, Nose, Throat Exam: moist mucous membranes Neck Exam: normal inspection Respiratory Exam: normal breath sounds, lungs clear, No crackles/rales, No rhonchi, No wheezing Cardiovascular Exam: regular rate/rhythm, normal heart sounds, No murmur Gastrointestinal/Abdomen Exam: soft, normal bowel sounds, other (obese), No tenderness, No distention, No mass, No guarding, No rebound Back Exam: normal inspection, No rash Extremity Exam: normal inspection, No pedal edema, No swelling Skin Exam: normal color, warm, dry, No rash Final Diagnosis/Problem List - Final Discharge Diagnosis/Problem (1) Anemia Current Visit: Yes Status: Acute Assessment & Plan: recheck cbc in 2-3 d outpatient. come to ER for any return of symptoms or blood noted in stool or from any other orifice. Code(s): D64.9 - ANEMIA, UNSPECIFIED (2) Atrial fibrillation Current Visit: Yes Status: Chronic Assessment & Plan: Home without Eliuis due to severe anemia required 4 units of blood this hospitalization. He will need to d/w his office technologist. Code(s): I48.91 - UNSPECIFIED ATRIAL FIBRILLATION (3) Tachycardia Current Visit: No Status: Resolved Code(s): R00.0 - TACHYCARDIA, UNSPECIFIED - Discharge Disposition: Home, Self-Care Condition: Stable Prescriptions: New PANTOPRAZOLE 40 mg Tablet [Protonix 40MG Tablet] 40 mg PO DAILY #30 tablet Acetaminophen 325 mg [Tylenol 325 mg] 650 mg PO Q4H PRN PRN tablet PRN Reason: TEMP >100 Continue Amiodarone HCl 200 mg PO BID Spironolactone 25 mg [Aldactone 25 MG] 1 tab PO DAILY Fluticasone Propion/Salmeterol [Wixela 250-50 Inhub] 1 puff .ROUTE BID Discontinued Rivaroxaban [Xarelto] 1 tab PO DAILY Follow up with: AURELIA GODINEZ MD [Primary Care Provider] -
--- NOTE | 2022-05-29 08:43 | OP ---
SURGERY DATE/TIME: 05/26/20221907 PREOPERATIVE DIAGNOSIS: Anemia. POSTOPERATIVE DIAGNOSIS: Anemia. PROCEDURE: EGD. SURGEON: Mina Salinas M.D. ANESTHESIA: Versed and Demerol. COMPLICATIONS: None. CONDITION: Stable. INDICATION: Jovani Perez has an anemia. He refused prep for colonoscopic examination. He has not had a recent colonoscopic examination. He has had anemia consistent with an upper or lower scope. DESCRIPTION OF PROCEDURE: He was taken to endoscopy. MAC sedation provided. Pharyngoesophageal junction normal. Esophagus normal. Gastroesophageal junction normal. Stomach normal. Pylorus normal. Keyhole view normal. Duodenal bulb normal. Second portion normal. Scope withdrawn looped upon itself. No hiatal hernia. Scope withdrawn. There was no blood and was a normal upper examination. He clearly needs a lower examination. Hopefully he can be talked into this as an outpatient.
== END 2022-05-27 14:57 | disposition home or self-care (01) ==
LOC: ED 14:54 → MED SURG 19:39
PROVIDERS: ADMIT Family Medicine; ATTEND General Practice
DX: D64.9 Anemia, unspecified (principal); I48.91 Unspecified atrial fibrillation; R00.0 Tachycardia, unspecified; R42 Dizziness and giddiness; Z79.01 Long term (current) use of anticoagulants; Z79.899 Other long term (current) drug therapy; Z20.828 Contact with and (suspected) exposure to other viral communicable diseases; Z72.0 Tobacco use
CPT/HCPCS: 0241U; 36000; 36415; 36430; 43235; 70450; 72125; 80048; 82607; 82746; 83540; 85025; 85610; 86850; 86900; 86901; 86922; 93005; 93041; 94640; 94760; 94762; 99284; P9016; 80053; 85014; 85018; 85027; 93268; J2250; J2704; A9270-GY; G0378

== ENCOUNTER 2023-04-23 10:12 | Emergency (ER) | payer MEDICARE ==
[2023-04-23 10:26] VITALS: TEMP 98
[2023-04-23 10:31] LABS: Absolute Neutrophil Ct (ANC) 9.27 x10^3/uL (1.4-6.9); BASOPHIL % 0.3 % (0.0-0.4); Basophil (Absolute #) 0.04 x10^3/uL (0-0.4); Eosinophil % 0.5 % (0.00-5.0); Eosinophil (Absolute #) 0.06 x10^3/uL (0-0.5); Hematocrit 44.2 % (42-50); Hemoglobin 15.1 g/dL (12.5-18.0); IMMATURE GRAN # 0.06 x10^3u/L (0.00-0.03); IMMATURE GRAN % 0.5 % (0.00-0.4); Lymphocyte (Absolute #) 1.33 x10^3/uL (1.0-4.6); Lymphocytes % 11.3 % (24.0-44.0); Mean Cell Volume 93.8 fL (78-100); Mean Corpuscular Hemoglobin 32.1 pg (26-32); Mean Corpuscular Hgb Concent. 34.2 g/dL (32-36); Mean Platelet Volume 10.3 fL (7.5-11.0); Monocyte (Absolute #) 1.05 x10^3/uL (0.0-1.3); Monocytes % 8.9 % (0.0-12.0); Neutrophil % 78.5 % (36.0-66.0); Platelet Count 299 x10^3/uL (150-450); Red Blood Count 4.71 x10^6/uL (4.1-5.6); Red Cell Distribution Width 13.4 % (11.5-14.0); White Blood Count 11.8 x10^3/uL (4.0-10.5)
[2023-04-23] MEDS ORDERED: DUONEB 0.5-3 MG/3 ml Neb IH ONE ×2 (10:35→11:20)
--- NOTE | 2023-04-23 10:38 | ERPHSYRPT ---
- History of Present Illness Source: patient Exam Limitations: no limitations Patient Subjective Stated Complaint: Pt c/o of cough for the past 4 days which is causing his chest and abdomen hurt Triage Nursing Assessment: Pt drove self to the ER, hypertensive, rates chest and abdomen pain as. 3-09/04 due to the coughing, pulses normal, skin is flushed and cool, wheezing heard from across the room, yellow thick sputum Physician History: Patient is 72-year-old gentleman who complains of dyspnea for 1 day. Patient smokes 3 cigars a day and states that he has had a cough for last 2 days which is nonproductive in nature. Coryza and fever are denied. Any chest pain is not at this time. Patient also denies nausea, vomiting, diarrhea, melena, and hematochezia. Dyspnea is worse upon exertion. Patient does not use any inhalers at home and is not on any home O2. Timing/Duration: yesterday Activities at Onset: rest Severity of Dyspnea-Max: severe Severity of Dyspnea-Current: moderate Possible Cause: occasional episodes Modifying Factors: Improves With: activity Associated Symptoms: cough, No chest pain/discomfort, No edema, No fever, No hemoptysis, No calf pain Allergies/Adverse Reactions: No Known Drug Allergies Allergy (Verified 04/23/23 10:26) Home Medications: Amiodarone HCl 200 mg PO BID 05/24/22 [History] Spironolactone 25 mg [Aldactone 25 MG] 1 tab PO DAILY 05/24/22 [History] Hx Influenza Vaccination/Date Given: Yes (2021) Hx Pneumococcal Vaccination/Date Given: No Travel Risk - International Travel Have you traveled outside of the country in past 3 weeks: No - Coronavirus Screening Are you exhibiting any of the following symptoms?: Yes Symptoms: Cough: New Onset Close contact with a COVID-19 positive Pt in past 14-21 Days: No - Vaccine Status Have you recieved a Covid-19 vaccination: Yes Investigative Reporter: plista - Review of Systems Constitutional: No Symptoms, Malaise Eyes: No Symptoms Ears, Nose, & Throat: No Symptoms Respiratory: No Symptoms, Cough, Dyspnea, Dyspnea on Exertion (ZHANG) Cardiac: No Symptoms Abdominal/Gastrointestinal: No Symptoms Genitourinary Symptoms: No Symptoms Musculoskeletal: No Symptoms Skin: No Symptoms Neurological: No Symptoms Psychological: No Symptoms Endocrine: No Symptoms Hematologic/Lymphatic: No Symptoms Immunological/Allergic: No Symptoms - Past Medical History Pertinent Past Medical History: Yes Neurological History: No Pertinent History ENT History: No Pertinent History Cardiac History: Arrhythmia, Congestive Heart Failure Respiratory History: No Pertinent History Endocrine Medical History: No Pertinent History Musculoskeletal History: No Pertinent History GI Medical History: No Pertinent History History: No Pertinent History Psycho-Social History: No Pertinent History Male Reproductive Disorders: No Pertinent History Other Medical History: hypotension 15 years ago - Past Surgical History Past Surgical History: Yes Neuro Surgical History: No Pertinent History Cardiac: Other Respiratory: No Pertinent History Gastrointestinal: No Pertinent History Genitourinary: No Pertinent History Musculoskeletal: No Pertinent History Male Surgical History: No Pertinent History Other Surgical History: ablasions to heart for afib - Social History Smoking Status: Current every day smoker How long have you smoked: cigar Exposure to second hand smoke: Yes Drug Use: none Patient Lives Alone: No - Nursing Vital Signs Nursing Vital Signs: Initial Vital Signs Temperature 98.0 F 04/23/23 10:16 Pulse Rate 72 04/23/23 10:16 Respiratory Rate 27 H 04/23/23 10:16 Blood Pressure 148/79 04/23/23 10:16 O2 Sat by Pulse Oximetry 96 04/23/23 10:16 Pain Scale Pain Intensity 4 Hypertensive - Physical Exam General Appearance: no apparent distress (Anxious white male no apparent distress) Eye Exam: PERRL/EOMI, eyes nml inspection Ears, Nose, Throat Exam: hearing grossly normal, normal ENT inspection, normal pharynx Neck Exam: normal inspection, non-tender, supple, full range of motion, No Brudzinski, No Kernig's, No meningismus, No carotid bruit Respiratory Exam: other (Patient with scattered expiratory wheezing bilaterally and prolonged expirations.) Cardiovascular/Chest Exam: normal heart sounds (Regular rate rhythm without heaves, gallops, murmurs, or rubs.) Abdominal/Gastrointestinal Exam: soft (Good bowel sounds, soft, nontender to palpation) Extremity Exam: non-tender (No deformity or edema noted.) Peripheral Pulses Exam: carotid (R): 2+, carotid (L): 2+ Neurologic Exam: alert, oriented x 3, cooperative, pals specialist II-XII nml as tested, normal mood/affect, nml cerebellar function, nml station & gait, sensation nml Skin Exam: normal color, warm, dry Lymphatic Exam: No adenopathy SpO2 Interpretation: normal SpO2: 96 O2 Delivery: Room Air - Course Nursing assessment & vital signs reviewed: Yes EKG Interpreted by Me: RATE (Normal sinus rhythm/rate 73/prolonged QTc/right bundle branch block/left anterior fascicular block/no acute ST segment changes/first-degree AV block noted.) - Radiology Exams Chest X-ray Interpretation: Teleradiologist Report (Resolution of left blunted costophrenic angle otherwise negative per telerad report) - CT Exams Chest CT Interpretation: Tele-radiologist Report (COPD and left upper lobe groundglass area) Ordered Tests: Active Orders 24 hr Category Date Time Status EKG-ER Only STAT Care 04/23/23 10:20 Completed CHEST 1 VIEW (PORTABLE) Stat Exams 04/23/23 10:42 Completed CHEST WITHOUT CONTRAST [CT] Stat Exams 04/23/23 12:36 Completed CBC W DIFF Stat Lab 04/23/23 10:20 Completed CMP Stat Lab 04/23/23 10:22 Completed D-DIMER QUANTITATIVE Stat Lab 04/23/23 10:20 Completed Lactic Acid Stat Lab 04/23/23 10:24 Completed NT PRO BNPII Stat Lab 04/23/23 10:22 Completed PROTIME WITH INR Stat Lab 04/23/23 10:22 Completed PTT Stat Lab 04/23/23 10:22 Completed TROPONIN Q4H Lab 04/23/23 10:22 Completed Respiratory Therapy Assessment DAILY RT 04/23/23 11:25 Completed Respiratory Therapy Assessment DAILY RT 04/23/23 14:48 Completed Medication Summary Discontinued Medications Generic Name Dose Route Start Last Admin Trade Name Freq PRN Reason Stop Dose Admin Albuterol Sulfate 2.5 mg 04/23/23 14:23 04/23/23 14:43 Albuterol Solution 2.5 Mg/0.5 Ml Ud Solution IH 04/23/23 14:24 2.5 mg STAT ONE Administration Albuterol Sulfate Confirm 04/23/23 14:38 Albuterol Sulfate 2.5 Mg/3 Ml Neb Administered 04/23/23 14:39 Dose 2.5 mg IH .STK-MED ONE Albuterol Sulfate Confirm 04/23/23 14:42 Albuterol Solution 2.5 Mg/0.5 Ml Ud Solution Administered 04/23/23 14:43 Dose 2.5 mg IH .STK-MED ONE Albuterol Sulfate 5 mg 04/23/23 15:00 Albuterol Solution 2.5 Mg/0.5 Ml Ud Solution IH 05/23/23 14:59 UD JOSE MARTIN Albuterol/Ipratropium 3 ml 04/23/23 10:35 04/23/23 11:23 Ipratropium/Albuterol Sulfate 3 Ml Ampul.Neb IH 04/23/23 10:36 3 ml STAT ONE Administration Albuterol/Ipratropium Confirm 04/23/23 11:20 Ipratropium/Albuterol Sulfate 3 Ml Ampul.Neb Administered 04/23/23 11:21 Dose 3 ml IH .STK-MED ONE Methylprednisolone Sodium 0 mg 04/23/23 14:24 04/23/23 14:31 Succinate 125 mg/ Sterile IV 04/23/23 14:25 125 mg Water 2 ml STAT ONE Administration Ceftriaxone Sodium/Dextrose 2 g in 50 mls @ 100 mls/hr 04/23/23 14:26 04/23/23 15:07 Rocephin 2 Gm-D5w 50ml Bag IV 04/23/23 14:55 Infused STAT STA Infusion Ceftriaxone Sodium/Dextrose Confirm 04/23/23 14:27 Rocephin 2 Gm-D5w 50ml Bag Administered 04/23/23 14:28 Dose 2 g in 50 mls @ ud IV .STK-MED ONE Levofloxacin 750 mg 04/23/23 14:24 04/23/23 14:36 Levofloxacin 250 Mg Tab PO 04/23/23 14:25 Not Given STAT ONE Levofloxacin Confirm 04/23/23 14:26 Levofloxacin 250 Mg Tab Administered 04/23/23 14:27 Dose 750 mg .ROUTE .STK-MED ONE Methylprednisolone Sodium Succinate Confirm 04/23/23 14:26 Methylprednis Sod Succ 125 Mg/2 Ml Vial Administered 04/23/23 14:27 Dose 125 mg .ROUTE .STK-MED ONE Sodium Chloride Confirm 04/23/23 14:42 Sodium Cl For Inhalation 3 Ml Ud Nebule Administered 04/23/23 14:43 Dose 3 ml IH .STK-MED ONE Sterile Water Confirm 04/23/23 14:26 Water For Injection,Sterile 10 Ml Vial Administered 04/23/23 14:27 Dose 10 ml IJ .STK-MED ONE Lab/Rad Data: Laboratory Result Diagrams 04/23/23 10:20 04/23/23 10:22 Laboratory Results 04/23/23 04/23/23 04/23/23 Range/Units 10:28 10:24 10:22 WBC (4.0-10.5) x10^3/uL RBC (4.1-5.6) x10^6/uL Hgb (12.5-18.0) g/dL Hct (42-50) % MCV (78-100) fL MCH (26-32) pg MCHC (32-36) g/dL RDW (11.5-14.0) % Plt Count (150-450) x10^3/uL MPV (7.5-11.0) fL Gran % (36.0-66.0) % Immature Gran % (Auto) (0.00-0.4) % Nucleat RBC Rel Count (0.00-0.1) % Eos # (Auto) (0-0.5) x10^3/uL Immature Gran # (Auto) (0.00-0.03) x10^3u/L Absolute Lymphs (auto) (1.0-4.6) x10^3/uL Absolute Monos (auto) (0.0-1.3) x10^3/uL Absolute Nucleated RBC (0.00-0.01) x10^3u/L Lymphocytes % (24.0-44.0) % Monocytes % (0.0-12.0) % Eosinophils % (0.00-5.0) % Basophils % (0.0-0.4) % Absolute Granulocytes (1.4-6.9) x10^3/uL Basophils # (0-0.4) x10^3/uL PT (9.4-12.5) SECONDS INR (0.8-3.0) APTT (25.1-36.5) SECONDS D-Dimer (0.0-0.50) mg/L Sodium (137-145) mmol/L Potassium (3.5-5.1) mmol/L Chloride (98-107) mmol/L Carbon Dioxide (22-30) mmol/L Anion Gap (5-15) MEQ/L BUN (9-20) mg/dL Creatinine (0.66-1.25) mg/dL Estimated GFR ML/MIN Glucose (74-106) mg/dL Lactic Acid 1.0 (0.4-2.0) Calcium (8.4-10.2) mg/dL Total Bilirubin (0.2-1.3) mg/dL AST (17-59) U/L ALT (0-50) U/L Alkaline Phosphatase (38-126) U/L Troponin I < 0.012 (0.000-0.034) ng/mL NT-Pro-B Natriuret Pep (<300) pg/mL Serum Total Protein (6.3-8.2) g/dL Albumin (3.5-5.0) g/dL Influenza Type A Ag NEGATIVE (NEGATIVE) Influenza Type B Ag NEGATIVE (NEGATIVE) RSV (PCR) NEGATIVE (NEGATIVE) SARS-CoV-2 (PCR) NEGATIVE (NEGATIVE) 04/23/23 04/23/23 04/23/23 Range/Units 10:22 10:22 10:20 WBC (4.0-10.5) x10^3/uL RBC (4.1-5.6) x10^6/uL Hgb (12.5-18.0) g/dL Hct (42-50) % MCV (78-100) fL MCH (26-32) pg MCHC (32-36) g/dL RDW (11.5-14.0) % Plt Count (150-450) x10^3/uL MPV (7.5-11.0) fL Gran % (36.0-66.0) % Immature Gran % (Auto) (0.00-0.4) % Nucleat RBC Rel Count (0.00-0.1) % Eos # (Auto) (0-0.5) x10^3/uL Immature Gran # (Auto) (0.00-0.03) x10^3u/L Absolute Lymphs (auto) (1.0-4.6) x10^3/uL Absolute Monos (auto) (0.0-1.3) x10^3/uL Absolute Nucleated RBC (0.00-0.01) x10^3u/L Lymphocytes % (24.0-44.0) % Monocytes % (0.0-12.0) % Eosinophils % (0.00-5.0) % Basophils % (0.0-0.4) % Absolute Granulocytes (1.4-6.9) x10^3/uL Basophils # (0-0.4) x10^3/uL PT 10.3 (9.4-12.5) SECONDS INR 0.94 (0.8-3.0) APTT 30.2 (25.1-36.5) SECONDS D-Dimer 0.40 (0.0-0.50) mg/L Sodium 130 L (137-145) mmol/L Potassium 4.0 (3.5-5.1) mmol/L Chloride 98 (98-107) mmol/L Carbon Dioxide 20 L (22-30) mmol/L Anion Gap 15.2 H (5-15) MEQ/L BUN 14 (9-20) mg/dL Creatinine 1.08 (0.66-1.25) mg/dL Estimated GFR 73.8 ML/MIN Glucose 130 H (74-106) mg/dL Lactic Acid (0.4-2.0) Calcium 9.0 (8.4-10.2) mg/dL Total Bilirubin 0.60 (0.2-1.3) mg/dL AST 61 H (17-59) U/L ALT 52 H (0-50) U/L Alkaline Phosphatase 100 (38-126) U/L Troponin I (0.000-0.034) ng/mL NT-Pro-B Natriuret Pep 476 (<300) pg/mL Serum Total Protein 8.2 (6.3-8.2) g/dL Albumin 4.5 (3.5-5.0) g/dL Influenza Type A Ag (NEGATIVE) Influenza Type B Ag (NEGATIVE) RSV (PCR) (NEGATIVE) SARS-CoV-2 (PCR) (NEGATIVE) 04/23/23 Range/Units 10:20 WBC 11.8 H (4.0-10.5) x10^3/uL RBC 4.71 (4.1-5.6) x10^6/uL Hgb 15.1 (12.5-18.0) g/dL Hct 44.2 (42-50) % MCV 93.8 (78-100) fL MCH 32.1 H (26-32) pg MCHC 34.2 (32-36) g/dL RDW 13.4 (11.5-14.0) % Plt Count 299 (150-450) x10^3/uL MPV 10.3 (7.5-11.0) fL Gran % 78.5 H (36.0-66.0) % Immature Gran % (Auto) 0.5 H (0.00-0.4) % Nucleat RBC Rel Count 0.0 (0.00-0.1) % Eos # (Auto) 0.06 (0-0.5) x10^3/uL Immature Gran # (Auto) 0.06 H (0.00-0.03) x10^3u/L Absolute Lymphs (auto) 1.33 (1.0-4.6) x10^3/uL Absolute Monos (auto) 1.05 (0.0-1.3) x10^3/uL Absolute Nucleated RBC 0.00 (0.00-0.01) x10^3u/L Lymphocytes % 11.3 L (24.0-44.0) % Monocytes % 8.9 (0.0-12.0) % Eosinophils % 0.5 (0.00-5.0) % Basophils % 0.3 (0.0-0.4) % Absolute Granulocytes 9.27 H (1.4-6.9) x10^3/uL Basophils # 0.04 (0-0.4) x10^3/uL PT (9.4-12.5) SECONDS INR (0.8-3.0) APTT (25.1-36.5) SECONDS D-Dimer (0.0-0.50) mg/L Sodium (137-145) mmol/L Potassium (3.5-5.1) mmol/L Chloride (98-107) mmol/L Carbon Dioxide (22-30) mmol/L Anion Gap (5-15) MEQ/L BUN (9-20) mg/dL Creatinine (0.66-1.25) mg/dL Estimated GFR ML/MIN Glucose (74-106) mg/dL Lactic Acid (0.4-2.0) Calcium (8.4-10.2) mg/dL Total Bilirubin (0.2-1.3) mg/dL AST (17-59) U/L ALT (0-50) U/L Alkaline Phosphatase (38-126) U/L Troponin I (0.000-0.034) ng/mL NT-Pro-B Natriuret Pep (<300) pg/mL Serum Total Protein (6.3-8.2) g/dL Albumin (3.5-5.0) g/dL Influenza Type A Ag (NEGATIVE) Influenza Type B Ag (NEGATIVE) RSV (PCR) (NEGATIVE) SARS-CoV-2 (PCR) (NEGATIVE) - Progress Progress: improved Progress Note: 04/23/23 17:23 Nursing note and vital signs reviewed. No food or housing insecurities noted. All lab results reviewed and shared with patient. Chest x-ray result reviewed and shared with patient. CTA chest reviewed and shared with patient. DuoNeb x 1 with improvement in an air movement and decrease in wheezing. Patient also likely has a early left upper lobe pneumonia which require antibiotics. Discussed admit with patient, but he refused at this time and wants to try oral antibiotics. Additional albuterol neb treatment given before discharge with improvement in air movement. 04/23/23 17:25 2 g IV Rocephin given before discharge. Patient started on Augmentin 875 mg p.o. twice daily for 10 days and also doxycycline 100 mg p.o. twice daily for 10 days. Patient with some residual wheezing before discharge but much improved from presentation. 125 mg IV Solu- Medrol given. Patient was discharged with albuterol inhaler. Smoking cessation was advised to patient. Again, patient refused observational admit at this time knowing that the possibility of return to ER for admit and IV antibiotics was a possibility. Counseled pt/family regarding: lab results, diagnosis, need for follow-up, rad results, smoking cessation Medical Desision Making - Diagnostic Testing Diagnostic test were ordered, analyzed, and reviewed by me: Yes Radiological Interpretation: Reviewed by me, Teleradiologist Report - Risk of complications The pt has a mod risk of morbidity or mortality based on: Need for prescription drug management - Departure Departure Disposition: Home Clinical Impression: Pneumonia Condition: Stable Critical Care Time: No Referrals: AURELIA GODINEZ MD [Primary Care Provider] - Follow up/PCP as directed Instructions: Pneumonia, Adult (DC), Exacerbation of COPD (DC) Additional Instructions: Follow-up with your family MD in 1 to 2 days. Augmentin 1 tablet twice a day for 10 days. Doxycycline 1 tablet twice a day for 10 days. Albuterol inhaler 2 puffs every 4 hours for the next 7 to 10 days and then as needed. Return to ER for increasing shortness of breath, chest pain, or temperature greater 100.5. Prescriptions: Albuterol Sulfate [Proventil Hfa] 2 puffs IH Q4H PRN PRN #1 inhaler PRN Reason: Shortness Of Breath Amox Tr/Potass Clav. 875 mg [Augmentin 875-125 Tablet] 875 mg PO BID #20 tablet Doxycycline Monohydrate 100 mg PO BID #20 cap
[2023-04-23 10:47] LABS: INR 0.94 (0.8-3.0); PROTIME 10.3 SECONDS (9.4-12.5); PTT 30.2 SECONDS (25.1-36.5)
[2023-04-23 10:55] LABS: ALBUMIN 4.5 g/dL (3.5-5.0); ANION GAP 15.2 MEQ/L (5-15); BILIRUBIN,TOTAL 0.6 mg/dL (0.2-1.3); Creatinine 1 1.08 mg/dL (0.66-1.25); EST GLOMERULAR FILTRATION RATE 73.8 ML/MIN; Total Protein 8.2 g/dL (6.3-8.2)
[2023-04-23 11:13] LABS: INFLUENZA A NEGATIVE (NEGATIVE); INFLUENZA B NEGATIVE (NEGATIVE); RESPIRATORY SYNCTIAL VIRUS NEGATIVE (NEGATIVE); SARS-CoV-2 Xpert Express NEGATIVE (NEGATIVE)
--- NOTE | 2023-04-23 11:34 | XRAY ---
CLINICAL HISTORY:dyspnea COMPARISON:08/08/2019 CT chest and scanogram was compared. TECHNIQUE:X-ray of the chest, PA view. FINDINGS: Resolution of left blunted costophrenic angle. A radiographic examination of the chest demonstrates clear lungs. Normal configuration of the mediastinum. The cinthya are normal in size and position. The cardiac size is normal. Atheromatous calcification of aortic knuckle. Cardiophrenic angles are clear. Retrocardiac and retrosternal spaces are normal. Dorsal spondylosis, otherwise bony thorax is unremarkable. IMPRESSION: Interval resolution of left blunted costophrenic angle. No other significant abnormality seen. Electronically Signed by: Ofelia Cadena MD. (04/23/2023 11:30:02 EST)
[2023-04-23 14:03] VITALS: PULSE 64
--- NOTE | 2023-04-23 14:12 | XRAY ---
CLINICAL HISTORY:Cough COMPARISON:08/08/2019 TECHNIQUE:Contiguous axial CT images of the chest were acquired without administration of intravenous contrast. Coronal and sagittal reconstructions were obtained. FINDINGS: Bilateral centrilobar and subpleural emphysematous changes were noted in both lung kiser more in both upper lobes as compared to the previous scan with almost the same findings. A small patch of ground-glass haze in the left upper lobe. Previously demonstrated pleural effusion and lower lobe consolidations are no more visualized. No evidence of pulmonary nodule noted. No evidence of pneumothorax noted. Atherosclerotic calcification is noted in the visualized aorta as well as in the bilateral renal hilar vessels. Severe degenerative changes are noted in the spine. IMPRESSION: Bilateral moderate emphysematous changes and focal area of ground glass opacity in the left upper lobe could be due to infective etiology. Please correlate clinically Electronically Signed by: Ofelia Cadena MD. (04/23/2023 14:07:36 EST)
[2023-04-23] MEDS ORDERED: PROVENTIL Solution 2.5 MG/0.5 ML IH ONE ×2 (14:23→14:42)
[2023-04-23] MEDS ORDERED: Levofloxacin 250MG Tablet PO ONE (14:24)
[2023-04-23] MEDS ORDERED: solu-MEDROL 125 MG, Sterile H2O 10 ml 2 ML IV ONE ×2 (14:24)
[2023-04-23] MEDS ORDERED: Sterile H2O 10 ml IJ ONE (14:26)
[2023-04-23] MEDS ORDERED: ROCEPHIN 2 Gm-D5w 50ML BAG** 2 G/50 ML IVPB IV STA (14:26)
[2023-04-23] MEDS ORDERED: Levofloxacin 250MG Tablet ONE (14:26)
[2023-04-23] MEDS ORDERED: solu-MEDROL ONE (14:26)
[2023-04-23] MEDS ORDERED: ROCEPHIN 2 Gm-D5w 50ML BAG** 2 G/50 ML IVPB IV ONE (14:27)
[2023-04-23] MEDS ORDERED: PROVENTIL 2.5 MG/3 ML NEB IH ONE (14:38)
[2023-04-23] MEDS ORDERED: Sodium Chloride 3 ML UD NEBULES IH ONE (14:42)
[2023-04-23 14:50] VITALS: RESP 18
[2023-04-23] MEDS ORDERED: PROVENTIL Solution 2.5 MG/0.5 ML IH SCH (15:00)
[2023-04-23 15:14] VITALS: BP 157/70
[2023-04-23 17:27] VITALS: O2SAT 96
== END 2023-04-23 15:15 | disposition home or self-care (01) ==
LOC: ED 10:12
DX: J18.9 Pneumonia, unspecified organism (principal); R06.00 Dyspnea, unspecified; R05.1 Acute cough; Z79.899 Other long term (current) drug therapy; Z72.0 Tobacco use
CPT/HCPCS: 0241U; 36000; 36415; 71045; 71250; 80053; 83605; 83880; 84484; 85025; 85379; 85610; 85730; 93005; 94640; 96365; 96374; 99284; 96375; J0696; J2930; J7609; A9270-GY